=== PATIENT | male | born 1965 | race Caucasian/White ===

== ENCOUNTER 2017-01-25 16:23 | Emergency (ER) | payer SELFPAY ==
[~2017-01-25] VITALS: Ht 172.7 cm; Wt 70.0 kg
[2017-01-25 16:26] VITALS: BP 161/105; PULSE 122; RESP 20; TEMP 98.3; O2SAT 100
[2017-01-25 16:42] VITALS: PULSE 110
--- NOTE | 2017-01-25 16:56 | PD ---
HPI Chief Complaint: Skin Problem Time Seen by Provider: 16:54 Travel History International Travel<30 days: No Contact w/Intl Traveler<30days: No Traveled to known affect area: No History of Present Illness HPI 51-year-old male presents to emergency department with laceration to the left medial knee. Patient states he was doing yard work yesterday and hit his left knee with a machete. He states he has no pain, numbness, or loss of function. He is here because the wound continues to start to bleed considerably. He has been unable to get it to stop bleeding. He is also in need of a tetanus shot. He has no known drug allergies. [facility] Social History Alcohol Use: Yes Tobacco Use: Yes Substance Use: No Allergies-Medications (Allergen,Severity, Reaction): Coded Allergies: No Known Allergies (Unverified , 01/25/17) Reported Meds & Prescriptions Reported Meds & Active Scripts Active No Active Prescriptions or Reported Medications Review of Systems Except as stated in HPI: all other systems reviewed are Neg General / Constitutional: No: Fever Eyes: No: Visual changes HENT: No: Headaches Cardiovascular: No: Chest Pain or Discomfort Respiratory: No: Shortness of Breath Gastrointestinal: No: Abdominal Pain Genitourinary: No: Dysuria Musculoskeletal: No: Pain Skin: No Rash Neurologic: No: Weakness Psychiatric: No: Depression Endocrine: No: Polydipsia Hematologic/Lymphatic: No: Easy Bruising Physical Exam Narrative GENERAL: Patient is in no acute distress. SKIN: Warm and dry. Normal color. Normal turgor. Patient is a 2 cm linear laceration to the left medial knee. It is full-thickness skin but does not involve the structures beneath the skin. Bleeding is currently controlled upon arrival and exam. HEAD: Atraumatic. Normocephalic. EYES: Pupils equal and round. No scleral icterus. No injection or drainage. ENT: No nasal bleeding or discharge. Mucous membranes pink and moist. Pharynx is clear. Airway is patent. NECK: Trachea midline. Supple nontender.. CARDIOVASCULAR: Regular rate and rhythm. RESPIRATORY: No accessory muscle use. Clear to auscultation. Breath sounds equal bilaterally. MUSCULOSKELETAL: Extremities without clubbing, cyanosis, or edema. No obvious deformities. Patient has full range of motion strength and sensation in both lower extremities. NEUROLOGICAL: Awake and alert. No obvious cranial nerve deficits. Motor grossly within normal limits. Five out of 5 muscle strength in the arms and legs. Normal speech. PSYCHIATRIC: Appropriate mood and affect; insight and judgment normal. Data Data Last Documented VS Vital Signs Date Time Temp Pulse Resp B/P Pulse Ox O2 Delivery O2 Flow Rate FiO2 01/25/17 16:42 110 01/25/17 16:26 98.3 20 161/105 100 Room Air Orders Lidocai-Epi 1%-1:100,000 Inj (Xylocaine- (01/25/17 17:00) Tetanus/Diphtheria Tox Adult (Tetanus/Di (01/25/17 17:00) MDM Medical Decision Making Medical Screen Exam Complete: Yes Emergency Medical Condition: Yes Differential Diagnosis Laceration left knee. Need for stitches. Need for Tetanus Narrative Course Patient is medically stable at time of exam. Wound is repaired. See procedure note. Sterile pressure dressing is applied, and she remain in place for the next 48 hours. Patient should refrain from significant bending of the left knee. Sutures should remain in place for the next 10 days. Patient should follow-up immediately with any signs or symptoms of cellulitis. Procedures Procedure Narrative LACERATION LOCATION: Left medial knee LENGTH: 2 cm NUMBER OF STITCHES/KASSIE: 1 interrupted vertical mattress, 2 interrupted horizontal mattress. REPAIR: The area of the laceration was prepped with Betadine and sterilely draped. The laceration was infiltrated with 3 mL was 1% lidocaine with epi. The wound was copiously irrigated and explored without evidence of foreign body , tendon injury or neurovascular injury. The wound was closed using 4-0 Prolene. This was a single layer repair. A sterile dressing was applied. The patient was advised to keep the dressing clean and dry. Patient tolerated the procedure well. Diagnosis Primary Impression: Laceration without foreign body, left knee, initial encounter Referrals: Primary Care Physician Patient Instructions: General Instructions, Laceration (ED), Tetanus (ED) Additional Instructions: Wound is repaired. Sterile pressure dressing is applied, and she remain in place for the next 48 hours. Patient should refrain from significant bending of the left knee. Sutures should remain in place for the next 10 days. Patient should follow-up immediately with any signs or symptoms of cellulitis. Med/Other Pt SpecificInfo: No Meds Exist/No RX given, Wound Care Scripts No Active Prescriptions or Reported Meds Disposition: 01 DISCHARGE HOME Condition: Jameel Echavarria Jan 25, 2017 16:56
[2017-01-25] MEDS ORDERED: TETANUS/DIPHTHERIA TOXOID ADULT 0.5 ML VIAL IM ONE (17:00)
[2017-01-25] MEDS ORDERED: LIDOCAINE 1%/EPINEPHrine 1:100,000 SOLN 20 ML VIAL INFIL ONE (17:00)
== END 2017-01-25 17:32 | disposition home or self-care (01) ==
LOC: NEPK 16:23
DX: S81.012A Laceration without foreign body, left knee, initial encounter (principal); Z23 Encounter for immunization; Z72.0 Tobacco use; W26.0XXA Contact with knife, initial encounter; Y93.H2 Activity, gardening and landscaping; Y92.007 Garden or yard of unspecified non-institutional (private) residence as the place of occurrence of the external cause
CPT/HCPCS: 12001; 90471; 90714